=== PATIENT | female | born 1950 | race Caucasian/White ===

== ENCOUNTER → 2020-04-24 13:54 | Outpatient (CLI) | payer OTHER, SELFPAY ==
[2020-04-24 15:31] LABS: Add Manual Diff / Slide Review NO; Basophils Absolute Auto 0 /uL (0-100); Basophils Percent Auto 0.6 % (0-2); Eosinophils Absolute Auto 100 /uL (0-450); Eosinophils Percent Auto 0.9 % (2-4); Hematocrit 42.4 % (36-46); Hemoglobin 14.3 g/dL (12.0-16.0); Lymphocytes Absolute Auto 1900 /uL (1100-4500); Lymphocytes Percent Auto 28.1 % (25-40); Mean Corpuscular HGB Conc 33.8 % (30-36); Mean Corpuscular Hemoglobin 29.8 PG (26-34); Mean Corpuscular Volume 88.2 fL (80-100); Monocytes Absolute Auto 400 /uL (0-900); Monocytes Percent Auto 6.3 % (3-14); Neutrophils Absolute Auto 4300 /uL (1500-7000); Neutrophils Percent Auto 64.1 % (50-75); Platelet Count 271 X10^3/uL (150-400); Red Cell Distribution Width 14.6 % (11.6-14.8); White Blood Cell Count 6.8 X10^3/uL (4.5-11.0)
[2020-04-24 15:38] LABS: HEMOLYSIS < 15 (0-50); Iron 118 ug/dL (37-170)
[2020-04-24 15:41] LABS: Alanine Aminotransferase 22 IU/L (<35); Albumin 4.4 g/dL (3.5-5.0); Albumin Globulin Ratio 1.3 (1.0-2.8); Alkaline Phosphatase 117 U/L (38-126); Aspartate Aminotransferase 34 IU/L (14-36); BUN Creatinine Ratio 19.1 (6-22); Bilirubin Total 0.7 mg/dL (0.2-1.3); Blood Urea Nitrogen 17 mg/dL (7-17); Calcium 9.7 mg/dL (8.4-10.2); Carbon Dioxide 31 mmol/L (22-32); Chloride 104 mmol/L (98-107); Cholesterol 196 mg/dL (140-199); Estimated Glomerular Filt Rate > 60.0 mL/min (>60); Globulin 3.5 g/dL (1.7-4.1); Glucose 109 mg/dL (80-110); HEMOLYSIS < 15 (0-50); Magnesium 1.9 mg/dL (1.6-2.3); Potassium 4.7 mmol/L (3.4-5.1); Sodium 140 mmol/L (137-145); Total Protein 7.9 g/dL (6.3-8.2); Triglycerides 86 mg/dL (35-150)
[2020-04-24 15:45] LABS: Hemoglobin A1C% w Est Avg Glu 5.7 % (4.0-6.0)
[2020-04-24 15:50] LABS: Percent Iron Saturation 32 % (15-50); Total Iron Binding Capacity 364 ug/dL (265-497); Transferrin 278 mg/dL (206-381)
[2020-04-24 15:52] LABS: HDL Cholesterol 110 mg/dL (40-60); LDL Cholesterol Calculated 69 mg/dL (<100)
[2020-04-24 16:15] LABS: Ferritin 76 ng/mL (11-264)
[2020-04-24 16:23] LABS: Vitamin D 25 Hydroxy (D3) 31.3 ng/mL (30.0-100.0)
[2020-04-24 16:38] LABS: Vitamin B12 996 pg/mL (239-931)
[2020-04-24 16:46] LABS: Folate > 20.0 ng/mL (2.76-20.0)
[2020-04-24 16:55] LABS: INR 2.8 (0.9-1.3); Prothrombin Time 31.9 SECONDS (10.1-12.7)
== END ==
PROVIDERS: PCP Nurse Practitioner; Referring Provider Nurse Practitioner; Visit Provider Nurse Practitioner
DX: E03.9 Hypothyroidism, unspecified (principal); F32.9 Major depressive disorder, single episode, unspecified; F41.9 Anxiety disorder, unspecified; I48.20 Chronic atrial fibrillation, unspecified; Z79.01 Long term (current) use of anticoagulants; Z79.899 Other long term (current) drug therapy; Z98.84 Bariatric surgery status; I48.91 Unspecified atrial fibrillation; I25.10 Atherosclerotic heart disease of native coronary artery without angina pectoris
CPT/HCPCS: 36415; 80053; 80061; 82306; 82607; 82728; 82746; 83036; 83540; 83550; 83735; 84443; 85025; 85610

== ENCOUNTER → 2020-06-12 12:15 | Outpatient (CLI) | payer OTHER, SELFPAY ==
--- NOTE | 2020-06-12 | DI.MG.S_ITS ---
BILATERAL DIGITAL SCREENING MAMMOGRAM 3D/2D WITH CAD: 06/12/2020 CLINICAL: Routine screening. Personal history of right breast cancer. Family history of breast cancer. Comparison is made to exams dated: 03/02/2019 mammogram, 09/17/2014 mammogram, and 03/28/2019 mammogram - outside location. There are scattered fibroglandular elements in both breasts. Current study was also evaluated with a Computer Aided Detection (CAD) system. There are benign post operative findings in the right breast. No significant masses, calcifications, or other findings are seen in either breast. There has been no significant interval change. IMPRESSION: BENIGN There is no mammographic evidence of malignancy. A 1 year screening mammogram is recommended. This exam was interpreted at Station ID: [id number]. NOTE: For mammograms, a report in lay terms will be sent to the patient. Approximately 15% of breast malignancies will not be visualized mammographically. In the management of a palpable breast mass, a negative mammogram must not discourage biopsy of a clinically suspicious lesion. Electronically Signed By: Kyle henao/nasreen:06/12/2020 13:55:53 letter sent: Normal Exam ACR BI-RADS Category 2: Benign Finding(s) 3342F
== END ==
PROVIDERS: PCP Nurse Practitioner; Referring Provider Nurse Practitioner; Visit Provider Nurse Practitioner
DX: Z12.31 Encounter for screening mammogram for malignant neoplasm of breast (principal); Z85.3 Personal history of malignant neoplasm of breast; Z80.3 Family history of malignant neoplasm of breast
CPT/HCPCS: 77063; 77067

== ENCOUNTER → 2020-08-28 15:54 | Outpatient (CLI) | payer OTHER, SELFPAY ==
--- NOTE | 2020-08-28 15:55 | DI.ECHO.S_ITS ---
[facility] +---------+ : : [address] : : : : [id number] : : : : Phone: [phone] Echocardiogram Report + + :Name: YU SNOW V Study Date: 08/28/2020 Height: 68 in : :[facility] ReadingLocation: Weight: 265 lb : : Gender: Female BSA: 2.3 m2 : :: 1950 Age: 70 yrs BP: 155/100 mmHg: :Reason For Study: SHORTNESS OF BREATH, FATIGUE, AFIB : :Ordering Physician: ANITA, : :JARED Performed By: Natalia Underwood : :Referring: JARED HOWARD : + + Interpretation Summary The left ventricle is normal in size. The ejection fraction is estimated to be 60-65%. There are no obvious focal wall motion abnormalities noted but poor endocardial definition reduces the sensitivity for the detection of such. The left atrium is severely dilated. There is mild mitral regurgitation. There is mild aortic valve sclerosis. The right ventricular systolic pressure is estimated to be at least 35 mmHg based on an estimated right atrial pressure of 3 mm Hg. There is mild tricuspid regurgitation. The ascending aorta is mild-moderately enlarged. Procedure: A two-dimensional transthoracic echocardiogram with color flow and Doppler was performed. The study quality was technically difficult. There is no prior echocardiogram noted for this patient. The patient was in atrial fibrillation with heart rates between 71-114 bpm during the exam. Left Ventricle: The left ventricle is normal in size. Left ventricular wall thickness is at the upper limits of normal. The ejection fraction is estimated to be 60-65%. There are no obvious focal wall motion abnormalities noted but poor endocardial definition reduces the sensitivity for the detection of such. Diastolic function could not be accurately assessed due to atrial fibrillation. Right Ventricle: The right ventricle is normal in size and function. Atria: The left atrium is severely dilated. The right atrium is moderately dilated. There is no Doppler evidence for an interatrial shunt. Mitral Valve: The mitral valve is normal in structure and function. There is mild mitral regurgitation. Aortic Valve: The aortic valve is trileaflet. The aortic valve opens well. There is mild aortic valve sclerosis. There is no aortic valve stenosis. No aortic regurgitation is present. Tricuspid Valve: The tricuspid valve is normal in structure and function. There is mild tricuspid regurgitation. The right ventricular systolic pressure is estimated to be at least 35 mmHg based on an estimated right atrial pressure of 3 mm Hg. Pulmonic Valve: The pulmonic valve leaflets are thin and pliable; valve motion is normal. There is no pulmonic valvular regurgitation. Great Vessels: The aortic root is normal size. The ascending aorta is mild- moderately enlarged. The IVC is of normal diameter and collapses greater than 50% with a sniff. This suggests a low right atrial pressure of 3 mm Hg. Pericardium/ Pleura There is no pericardial effusion. There is no pleural effusion. MMode/2D Measurements & Calculations LVIDd: 4.4 cm LVOT diam: 1.9 cm LVIDs: 3.2 cm Ao root diam: 3.0 cm FS: 27.4 % asc Aorta Diam: 4.0 cm EPSS: 0.61 cm Ao Arch Diam (Prox Trans): 2.8 cm IVSd: 1.1 cm LVPWd: 1.0 cm LV garcia. diameter/BSA (cm/m^2): 1.9 LV sys. diameter/BSA (cm/m^2): 1.4 LA A2 area: 31.3 cm2 RA long axis: 7.4 cm LA A4 area: 32.3 cm2 RA area: 29.3 cm2 LA length (vol): 6.6 cm RA vol: 99.0 ml LA vol: 129.9 ml RA : 43.0 ml/m2 LA vol index: 56.4 ml/m2 IVC diam: 1.4 cm RVD1 (basal): 2.0 cm TAPSE: 1.9 cm Doppler Measurements & Calculations Ao V2 max: 106.3 cm/sec LVOT Max Papito: 69.1 cm/sec Ao V2 mean: 74.7 cm/sec LV V1 max P.9 mmHg Ao max P.5 mmHg LV V1 VTI: 13.6 cm Ao mean P.5 mmHg SHELLI(I,D): 1.9 cm2 Ao V2 VTI: 20.1 cm SHELLI(V,D): 1.8 cm2 sev ratio: 0.67 SHELLI indexed to BSA (cm^2/m^2): 0.83 MV E max papito: 102.1 cm/sec TR max papito: 283.5 cm/sec MV A max papito: 1.9 cm/sec TR max P.2 mmHg MV E/A: 54.5 PA V2 max: 65.9 cm/sec Med Peak E' Papito: 11.2 cm/sec PA V2 mean: 41.7 cm/sec E/E' med: 9.1 PA mean P.84 mmHg Lat Peak E' Papito: 13.1 cm/sec PA pr(Accel): 32.8 mmHg E/E' lat: 7.8 E/e' average: 8.5 MV dec time: 0.14 sec SV(LVOT): 38.4 ml Reading Physician:11:45 AM
== END ==
PROVIDERS: PCP Nurse Practitioner; Referring Provider Nurse Practitioner; Visit Provider Nurse Practitioner
DX: I08.3 Combined rheumatic disorders of mitral, aortic and tricuspid valves (principal); I77.89 Other specified disorders of arteries and arterioles; I48.20 Chronic atrial fibrillation, unspecified; R06.02 Shortness of breath; R53.83 Other fatigue
CPT/HCPCS: 93306

== ENCOUNTER → 2021-07-14 11:20 | Outpatient (CLI) | payer OTHER, SELFPAY ==
--- NOTE | 2021-07-14 | DI.MG.S_ITS ---
BILATERAL DIGITAL SCREENING MAMMOGRAM 3D/2D WITH CAD: 07/14/2021 CLINICAL: Routine screening. Personal history of right breast cancer. Routine screening. Comparison is made to exams dated: 06/12/2020 mammogram - [facility], 03/28/2019 ultrasound, 03/28/2019 mammogram, and 03/06/2019 mammogram - outside location. There are scattered fibroglandular elements in both breasts. Current study was also evaluated with a Computer Aided Detection (CAD) system. There are benign post operative findings in the right breast. No significant masses, calcifications, or other findings are seen in either breast. There has been no significant interval change. IMPRESSION: BENIGN There is no mammographic evidence of malignancy. A 1 year screening mammogram is recommended. This exam was interpreted at Station ID: [id number]. NOTE: For mammograms, a report in lay terms will be sent to the patient. Approximately 15% of breast malignancies will not be visualized mammographically. In the management of a palpable breast mass, a negative mammogram must not discourage biopsy of a clinically suspicious lesion. Electronically Signed By: Gene samaniego/nasreen:07/14/2021 16:23:15 letter sent: Normal Exam ACR BI-RADS Category 2: Benign Finding(s) 3342F
== END ==
PROVIDERS: PCP Nurse Practitioner; Referring Provider Nurse Practitioner; Visit Provider Nurse Practitioner
DX: Z12.31 Encounter for screening mammogram for malignant neoplasm of breast (principal); Z85.3 Personal history of malignant neoplasm of breast
CPT/HCPCS: 77063; 77067

== ENCOUNTER → 2021-12-23 12:57 | Outpatient (CLI) | payer OTHER, SELFPAY ==
--- NOTE | 2021-12-23 13:00 | DI.MRI.S_ITS ---
PROCEDURE: MR KNEE LT WO CON INDICATIONS: Left medial knee pain - worsening recently TECHNIQUE: Noncontrast sagittal PD fast spin echo and T2 fast spin echo with fat saturation, sagittal 3-D FLASH with fat saturation; coronal T1 spin echo and PD fast spin echo with fat saturation, and axial PD fast spin echo with fat saturation through the knee. COMPARISON: None. FINDINGS: Image quality: Excellent. Anterior Cruciate Ligament: Intact. Posterior Cruciate Ligament: Intact. Medial Collateral Ligament: Mild thickening of the proximal medial collateral ligament is most likely secondary to a remote prior low-grade sprain. Lateral Collateral Ligament: Intact. Medial Meniscus: There is complex tearing involving the body and posterior horn of the medial meniscus. A horizontal oblique component is seen at the posterior horn and body extending to the inner third of the tibial articular surface. There is also a deep radial component near the posterior root attachment. Mild extrusion of the meniscal body is seen beyond the femorotibial joint line. Lateral Meniscus: Mild intrasubstance degeneration is seen without a discrete tear. Medial and Lateral Tendons: The semimembranosus tendon insertions and meniscocapsular junction appear intact. Visualized portions of the pes anserinus tendons appear normal. No abnormal bursal fluid. The long and short heads of the biceps femoris tendon appear intact. The popliteus tendon appears intact. No signs of posterolateral corner injury. Iliotibial band appears normal. Anterior Structures: The quadriceps and patellar tendons appear intact. No patellar subluxation. 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 The tibial tubercle-trochlear groove distance is approximately 1.8 cm. No edema in the infrapatellar fat pad. Bones: No acute trabecular bone injury or fracture. Medial Femorotibial Cartilage: High-grade and likely full-thickness cartilage loss is seen at the central to posterior weight-bearing portion of the medial femoral condyle with mild subchondral edema and small marginal osteophytes. Findings are superimposed on generalized cartilage thinning in the weight-bearing portion of the medial compartment. Lateral Femorotibial Cartilage: No focal cartilage defect. Patellofemoral Cartilage: Focal full-thickness cartilage loss is seen at the median ridge of the patella with mild subchondral cystic changes. Mild to moderate partial-thickness cartilage loss are seen at the medial and lateral patellar facets. Soft Tissues: There is a small joint effusion. A small medial popliteal cyst is seen. There is also small amount of fluid tracking inferiorly along the popliteus tendon sheath. The musculature surrounding the knee is normal in bulk. IMPRESSION: 1. Complex tearing of the body portion horn of the medial meniscus with a horizontal oblique component extending to the inner third of the tibial articular surface at the posterior horn and body as well as a deep radial component at the posterior root attachment. Mild extrusion of the meniscal body is noted. 2. Mild intrasubstance degeneration in the lateral meniscus without a discrete tear. 3. Chronic low-grade sprain of the proximal medial collateral ligament. 4. 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 The tibial tubercle-trochlear groove distance is 1.8 cm. 5. Focal full-thickness cartilage loss in the anterior compartment at the median ridge of the patella. Grade 3-4 chondromalacia is seen in the weight-bearing portion of the medial femorotibial compartment. 6. Small joint effusion. Small medial popliteal cyst. Dictated by: Kyle Strickland M.D. on 12/23/2021 at 20:11 Approved by: Kyle Strickland M.D. on 12/23/2021 at 20:20
== END ==
PROVIDERS: PCP Nurse Practitioner; Referring Provider Nurse Practitioner; Visit Provider Nurse Practitioner
DX: M25.562 Pain in left knee (principal); S83.242A Other tear of medial meniscus, current injury, left knee, initial encounter; S83.412A Sprain of medial collateral ligament of left knee, initial encounter; S83.012A Lateral subluxation of left patella, initial encounter; M94.262 Chondromalacia, left knee; M25.462 Effusion, left knee; M71.22 Synovial cyst of popliteal space [Baker], left knee
CPT/HCPCS: 73721

== ENCOUNTER → 2022-01-21 12:32 | Outpatient (CLI) | payer OTHER, SELFPAY ==
--- NOTE | 2022-01-21 12:56 | DI.ECHO.S_ITS ---
:Referring: ANITA JARED : + + Interpretation Summary The left ventricle is normal in size. There is mild-moderate concentric left ventricular hypertrophy. The ejection fraction is estimated to be 55-60%. There are no focal wall motion abnormalities. Diastolic function could not be accurately assessed due to atrial fibrillation. Both atria are severely dilated. There is mild mitral regurgitation. There is mild tricuspid regurgitation. The right ventricular systolic pressure is estimated to be at least 36 mmHg based on an estimated right atrial pressure of 3 mm Hg. Similar to prior study on 08/28/2020 Procedure: A two-dimensional transthoracic echocardiogram with color flow and Doppler was performed. The study quality was technically adequate. Comparison is made with the echocardiogram of 08/28/2020. The patient was in atrial fibrillation with controlled ventricular rate during the exam. Hypertensive during exam. Left Ventricle: The left ventricle is normal in size. There is mild-moderate concentric left ventricular hypertrophy. Left ventricular systolic function is normal. The ejection fraction is estimated to be 55-60%. There are no focal wall motion abnormalities. Diastolic function could not be accurately assessed due to atrial fibrillation. Right Ventricle: The right ventricle is normal in size and function. Atria: Both atria are severely dilated. The interatrial septum grossly appears intact with no obvious evidence for an atrial septal defect. Mitral Valve: There is mild mitral annular calcification. There is mild mitral regurgitation. Aortic Valve: The aortic valve is normal in structure and function. No aortic regurgitation is present. Tricuspid Valve: The tricuspid valve is normal in structure and function. There is mild tricuspid regurgitation. The right ventricular systolic pressure is estimated to be at least 36 mmHg based on an estimated right atrial pressure of 3 mm Hg. Pulmonic Valve: The pulmonic valve is normal in structure and function. There is a trace or physiologic amount of pulmonic regurgitation. Great Vessels: The aortic root is normal size. The ascending aorta is mildly enlarged. The IVC is of normal diameter and collapses greater than 50% with a sniff. This suggests a low right atrial pressure of 3 mm Hg. Pericardium/ Pleura There is no pericardial effusion. There is no pleural effusion. MMode/2D Measurements & Calculations LVIDd: 4.0 cm LVOT diam: 2.1 cm LVIDs: 2.9 cm Ao root diam: 3.1 cm FS: 28.1 % asc Aorta Diam: 3.9 cm IVSd: 1.3 cm LVPWd: 1.3 cm LV garcia. diameter/BSA (cm/m^2): 1.8 LV sys. diameter/BSA (cm/m^2): 1.3 LA A2 area: 30.2 cm2 RA long axis: 7.4 cm LA A4 area: 32.9 cm2 RA area: 27.3 cm2 LA length (vol): 7.5 cm RA vol: 85.3 ml LA vol: 112.4 ml RA : 38.1 ml/m2 LA vol index: 50.3 ml/m2 TAPSE: 1.8 cm Doppler Measurements & Calculations Ao V2 max: 121.1 cm/sec LVOT Max Papito: 86.3 cm/sec Ao V2 mean: 83.5 cm/sec LV V1 max P.0 mmHg Ao max P.9 mmHg LV V1 VTI: 15.7 cm Ao mean P.1 mmHg SHELLI(I,D): 2.7 cm2 Ao V2 VTI: 20.5 cm SHELLI(V,D): 2.5 cm2 sev ratio: 0.77 SHELLI indexed to BSA (cm^2/m^2): 1.2 TR max papito: 284.9 cm/sec SV(LVOT): 54.9 ml TR max P.5 mmHg Reading Physician:PETE
== END ==
PROVIDERS: PCP Nurse Practitioner; Referring Provider Nurse Practitioner; Visit Provider Nurse Practitioner
DX: I10 Essential (primary) hypertension (principal); I08.1 Rheumatic disorders of both mitral and tricuspid valves
CPT/HCPCS: 93306

== ENCOUNTER → 2022-04-28 09:27 | Outpatient (CLI) | payer OTHER, SELFPAY ==
[2022-04-28 11:04] LABS: COVID19 -Nasal RAPID Negative (Negative)
--- NOTE | 2022-04-28 20:16 | DI.NM.S_ITS ---
DATE OF SERVICE: 04/28/2022 PROCEDURE: Intravenous Lexiscan perfusion study. INDICATION: Chest pain with underlying AFib, hypertension. RADIOPHARMACEUTICAL: 26.4 millicurie technetium-99m Myoview IV was injected at stress and 11.6 millicurie technetium-99m Myoview IV was injected at rest. CARDIAC STRESS: The patient underwent IV Lexiscan perfusion study under the supervision of an attending staff, as per standard intravenous Lexiscan protocol. Remained hemodynamically stable. Baseline rhythm was AFib with ventricular rate of about 106. During Lexiscan, maximum heart rate achieved 133 beats per minute. The patient has baseline nonspecific ST-T changes. There were no new ischemic changes. The patient remained in AFib. No other significant arrhythmias. No chest pain. The patient has minimal dyspnea. Baseline blood pressure 158/100 mmHg. RAW DATA: Significant breast shadow seen. There is increased subdiaphragmatic activity. The patient's weight is 250 pounds. GATED STUDY: Resting LV ejection fraction 57 and stress LV ejection fraction 65 percent without any obvious wall motion abnormalities. Resting end-diastolic volume 72 mL. TID ratio 0.87, which is within normal limits. Lung/heart ratio 0.44, which is within normal limits. MYOCARDIAL PERFUSION SCAN: Stress supine, resting supine and stress prone images were compared to each other. Stress supine images revealed small size, moderately decreased perfusion of distal anterolateral wall. Resting supine images revealed small size, moderately decreased perfusion of distal anterior wall, as well as mildly decreased perfusion of inferolateral wall. During stress prone images, all the defects got significantly improved, suggestive of breast tissue attenuation, as well as diaphragmatic tissue attenuation artifact. No convincing ischemia or infarction. CONCLUSION: I will call this study a normal myocardial perfusion study with evidence of breast tissue attenuation artifact, as well as diaphragmatic tissue attenuation artifact, which got significantly resolved during stress prone images. No convincing ischemia or infarction pattern. Underlying atrial fibrillation and ventricular rate of about 108 beats per minute at rest. Stress left ventricular ejection fraction 65 percent. No transient ischemic dilatation. Overall ,low-risk myocardial perfusion scan. Cheyenne Meléndez - Afua/isa doc#: [id number]/job#: [id number] dd: 04/28/2022 17:04:00 dt: 04/28/2022 19:18:00 DICTATING MD/COPIES TO: Mary Medina MD COPIES MNE: GONZALO;
== END ==
PROVIDERS: PCP Nurse Practitioner; Referring Provider Internal Medicine Cardiovascular Disease; Visit Provider Internal Medicine Cardiovascular Disease
DX: R07.9 Chest pain, unspecified (principal); I48.91 Unspecified atrial fibrillation; I10 Essential (primary) hypertension; R06.00 Dyspnea, unspecified; Z20.822 Contact with and (suspected) exposure to COVID-19
CPT/HCPCS: 78452; 87635; 93017; A9502; J2785

== ENCOUNTER → 2022-05-04 11:56 | Outpatient (CLI) | payer OTHER, SELFPAY | PROVIDERS: PCP Nurse Practitioner; Referring Provider Nurse Practitioner; Visit Provider Nurse Practitioner | DX: Z13.820 Encounter for screening for osteoporosis; Z78.0 Asymptomatic menopausal state; K92.9 Disease of digestive system, unspecified; I48.91 Unspecified atrial fibrillation; Z92.23 Personal history of estrogen therapy | CPT/HCPCS: 77080 ==

== ENCOUNTER → 2022-05-05 11:45 | Outpatient (CLI) | payer OTHER, SELFPAY ==
--- NOTE | 2022-05-05 11:46 | DI.MG.S_ITS ---
BILATERAL DIGITAL DIAGNOSTIC MAMMOGRAM 3D/2D POST LUMPECTOMY: 05/05/2022 CLINICAL: Mastodynia. Comparison is made to exams dated: 07/14/2021 mammogram, 06/12/2020 mammogram - [facility], and 03/28/2019 mammogram - outside location. There are scattered areas of fibroglandular density in both breasts (category b / 25%-50% glandular tissue). No significant masses, calcifications, or other findings are seen in either breast. IMPRESSION: INCOMPLETE: NEEDS ADDITIONAL IMAGING EVALUATION There is no mammographic abnormality seen in the right breast to correspond with the pain, however, targeted ultrasound of the right breast is recommended and will be performed immediately following this exam. This exam was interpreted at Station ID: [id number]. NOTE: For mammograms, a report in lay terms will be sent to the patient. Approximately 15% of breast malignancies will not be visualized mammographically. In the management of a palpable breast mass, a negative mammogram must not discourage biopsy of a clinically suspicious lesion. Electronically Signed By: Christi Wilson M.D. lk/:05/05/2022 12:16:23 ACR BI-RADS Category 0: Incomplete 3340F
--- NOTE | 2022-05-05 11:46 | DI.US.S_ITS ---
ULTRASOUND OF RIGHT BREAST: 05/05/2022 CLINICAL: Focal right breast pain. Comparison is made to exams dated: 05/05/2022 mammogram, 07/14/2021 mammogram, 06/12/2020 mammogram - [facility], 03/28/2019 ultrasound, 03/28/2019 mammogram, and 03/06/2019 mammogram - outside location. Color flow and real-time ultrasound of the right breast were performed on the areas of interest. Connolly scale images of the real-time examination were reviewed. IMPRESSION: NEGATIVE There is no sonographic evidence of malignancy. There is no mammographic or sonographic abnormality seen in the right breast to correspond with the intermittent pain, however, clinical followup is recommended. Return to annual mammogram screening schedule is recommended. This exam was interpreted at Station ID: [id number]. Electronically Signed By: Christi clement/:05/05/2022 13:19:49 letter sent: Clinical Evaluation Ultrasound BI-RADS: 1 Negative
== END ==
PROVIDERS: PCP Nurse Practitioner; Referring Provider Nurse Practitioner; Visit Provider Nurse Practitioner
DX: Z85.3 Personal history of malignant neoplasm of breast (principal); N64.4 Mastodynia; R92.2 Inconclusive mammogram
CPT/HCPCS: 76642; 77066; G0279

== ENCOUNTER → 2022-05-28 11:11 | Outpatient (CLI) | payer OTHER, SELFPAY ==
[2022-05-28 12:48] LABS: COVID19 -Nasal RAPID Negative (Negative)
== END ==
PROVIDERS: PCP Nurse Practitioner; Visit Provider Surgery
DX: Z01.812 Encounter for preprocedural laboratory examination (principal); Z20.822 Contact with and (suspected) exposure to COVID-19
CPT/HCPCS: 87635; C9803

== ENCOUNTER 2022-05-31 10:11 | Day surgery (SDC) | payer OTHER, SELFPAY ==
[2022-05-31 00:51] VITALS: BP 146/95; PULSE 92; RESP 18; O2SAT 99
[2022-05-31 10:49] VITALS: BP 127/89; PULSE 97; RESP 20; TEMP 36; O2SAT 98; BMI 37.2
--- NOTE | 2022-05-31 10:52 | P.HP_ITS ---
History of Present Illness History of Present Illness Date Patient Seen: 05/31/22 Time Patient Seen: 10:52 Chief complaint: [facility] Narrative: colon cancer screening, denies h/o colon polyps. No family history for colon cancer. Her last scope was 10 years ago. Patient History Medical History Allergies Anxiety Atrial fibrillation with RVR Breast cancer (~2018) Chicken pox Chronic anticoagulation Chronic atrial fibrillation (~2007) Depression Fall GERD (gastroesophageal reflux disease) (~2004) Gonorrhea Hearing loss (~2014) History of breast cancer in adulthood Hyperlipidemia Hypertension Hypothyroidism (~2004) IBS (irritable bowel syndrome) (~2004) Left medial knee pain Left ventricular hypertrophy by electrocardiogram Lichen sclerosus (~2009) Measles Mumps Ovarian cyst Post-menopausal osteoporosis Recurrent sinusitis Right knee pain Seasonal allergic rhinitis Surgical History Anesthesia History of gastric bypass (~2009) History of left oophorectomy (~1979) History of lumpectomy of right breast (~03/2019) Family & Social History Family History Father Cancer Alcohol abuse Mother Cancer Depression Insomnia Hypertension Anxiety Alcohol abuse Dementia Sister Depression Anxiety Grandmother Diabetes mellitus Social History: household members spouse lives independently No caregiver/support person No Tobacco & Substance use: Smoking Status Former smoker alcohol intake never Meds Home Medications and Allergies Home Medications Medication Instructions Recorded Confirmed Type CPAP Mask #1 ea 07/16/19 03/02/22 Rx CPAP Mask Cushions #6 ea 07/16/19 03/02/22 Rx anastrozole 1 mg tablet 1 mg PO DAILY 07/30/19 05/31/22 History cetirizine 10 mg capsule (All Day 10 mg PO BID 07/30/19 05/31/22 History Allergy (cetirizine)) betamethasone dipropionate 0.05 % See Rx Instructions .Route 05/21/21 05/31/22 Rx topical cream .COMPLEX #45 grams dicyclomine 10 mg capsule See Rx Instructions .Route 07/09/21 05/31/22 Rx .COMPLEX #180 caps omeprazole 20 mg capsule,delayed 20 mg PO DAILY acid reflux #90 caps 07/15/21 05/31/22 Rx release warfarin 5 mg tablet See Rx Instructions .Route .COMPLEX 01/21/22 05/31/22 History Lactobacillus acidophilus and 1 cap PO .QD #90 caps 02/01/22 03/02/22 Rx rhamnosus 15 billion cell capsule ([employer]) bupropion HCl 300 mg 24 hr tablet, See Rx Instructions .Route 02/01/22 05/31/22 Rx extended release .COMPLEX #90 tabs diph,pertuss(acel),tet vac(PF) 0.5 ml IM ONCE #0.5 mL 03/02/22 03/02/22 Rx 2Lf-(2.5-5-3-5mcg)-5 Lf/0.5 mL IM susp (Adacel (Tdap Adolesn/Adult)(PF)) lisinopril 5 mg tablet 20 mg PO DAILY 03/02/22 05/31/22 History varicella-zoster glycoE vacc-AS01B 0.5 ml IM ONCE #1 ea 03/02/22 03/02/22 Rx adj(PF) 50 mcg/0.5 mL IM susp, kit (Shingrix (PF)) levothyroxine 50 mcg tablet See Rx Instructions .Route 05/19/22 05/31/22 Rx .COMPLEX #90 tabs metoprolol tartrate 25 mg tablet See Rx Instructions .Route 05/19/22 05/31/22 Rx .COMPLEX #360 tabs Allergies Allergy/AdvReac Type Severity Reaction Status Date / Time Sulfa (Sulfonamide Allergy Rash Verified 05/31/22 10:22 Antibiotics) Review of Systems Review of Systems ROS: Yes All systems reviewed with the patient and are negative except as otherwise documented Exam Const General: anxious Nutritional Appearance: overweight Orientation: alert, awake and oriented x3 [facility] Head: normocephalic and atraumatic Ears: hearing grossly normal bilaterally Nose: external nose normal Throat: posterior oropharynx normal Eyes Sclera: sclerae normal Neck Neck: trachea midline Chest Chest: normal inspection of the chest Resp Effort & Inspection: normal respiratory effort and able to speak in complete sentences Cardio Rate: regular rate GI Inspection: normal to inspection Palpation: soft Skin General: atrophy Neuro General: patient alert, patient awake and patient oriented x3 Extrem General: normal to inspection Psych Appearance: grossly normal Judgment: judgment good Assessment & Plan Assessment & Plan narrative: Colon cancer screening, h/o breast cancer and right LE sarcoma. No family history for colon cancer Plan: colonoscopy with biopsy if indicated. COVID-19 COVID-19 status: Negative Time Spent With Patient Time with patient: less than 30 minutes Critical Care time: I spent a total of [] minutes of critical care time on this patient's care today; this time is exclusive of procedural time.
[2022-05-31] MEDS: LACTATED RINGERS 1,000 ML 100 ML IV (11:00)
--- NOTE | 2022-05-31 11:05 | PM.OP.COLON ---
Operative Date/Time/Diagnoses Date of procedure: 05/31/22 Time of procedure: 11:05 Pre-op diagnosis: Colon cancer screening Post-op diagnosis: same Procedure & Clinicians Study performed: colonoscopy with moderate sedation Same procedure as scheduled: Yes Indications: colon cancer screening Surgeon: Delia Baeza Procedure Notes Procedure in detail: Preop diagnosis: Colon cancer screening Postop diagnosis: Same Operative procedure: Colonoscopy with moderate sedation Surgeon: Antonia Baeza MD Anesthetic: Fentanyl 175 mcg, Versed 5 mg Findings: Large diverticuli in the sigmoid colon consistent with moderate to severe diverticulosis. No polyps Procedure: Patient placed in lateral position. Rectal exam performed showing normal tone no masses. Colonoscope inserted into the rectum and advanced to ileocecal valve with minimal difficulty. We did have pressure on the abdomen for short period of time Insufflation extraction scope including retroflex in the rectum had the above findings Impression: Severe diverted severe to moderate diverticulosis of the sigmoid colon. No polyps identified Plan: Repeat colonoscopy in 10 years unless otherwise indicated by change in clinical condition or family history Sedation minutes: 24 Findings: divertiulosis Specimen(s): none sent Complications: none Post-procedure Recommendations: Colonoscopy in 10 years Follow up: as needed Disposition: PACU
[2022-05-31] MEDS: fentaNYL 100 MCG/2 ML INJ 175 MCG IV (11:22)
[2022-05-31] MEDS: MIDAZOLAM 5 MG/5 ML VIAL IV (11:22)
[2022-05-31 11:36] VITALS: BP 147/85; PULSE 88; RESP 16; TEMP 36.1; O2SAT 97
[2022-05-31 11:46] VITALS: BP 145/95; PULSE 98; RESP 8; O2SAT 97
[2022-05-31 12:05] VITALS: BP 142/76; PULSE 98; RESP 16; TEMP 36.1; O2SAT 97
== END 2022-05-31 12:15 | disposition home or self-care (01) ==
PROVIDERS: PCP Nurse Practitioner; Referring Provider Surgery; Visit Provider Surgery
PROC: 0DJD8ZZ Inspection of Lower Intestinal Tract, Via Natural or Artificial Opening Endoscopic (ICD-10-PCS; CPT 45378; principal; 2022-05-31 11:30)
DX: Z12.11 Encounter for screening for malignant neoplasm of colon (principal); K57.30 Diverticulosis of large intestine without perforation or abscess without bleeding
CPT/HCPCS: G0121; 85610; J2250; J3010

== ENCOUNTER → 2022-10-27 13:09 | Outpatient (CLI) | payer OTHER, SELFPAY ==
[2022-10-27 13:49] LABS: INR 3.9 (0.9-1.3); Prothrombin Time 45.3 SECONDS (10.1-12.7)
== END ==
PROVIDERS: PCP Nurse Practitioner; Referring Provider Nurse Practitioner; Visit Provider Nurse Practitioner
DX: I82.409 Acute embolism and thrombosis of unspecified deep veins of unspecified lower extremity (principal)
CPT/HCPCS: 36415; 85610

== ENCOUNTER → 2023-08-23 11:06 | Outpatient (CLI) | payer OTHER, SELFPAY | LOC: RESP 11:06 | PROVIDERS: PCP Nurse Practitioner; Referring Provider Nurse Practitioner; Visit Provider Nurse Practitioner | DX: R06.02 Shortness of breath (principal); Z87.891 Personal history of nicotine dependence; J98.8 Other specified respiratory disorders | CPT/HCPCS: 94060; 94726; 94729 ==

== ENCOUNTER → 2023-09-06 14:44 | Outpatient (CLI) | payer OTHER, SELFPAY ==
--- NOTE | 2023-09-06 14:45 | DI.CT.S_ITS ---
PROCEDURE: CT HEAD/BRAIN WO CON INDICATIONS: confusion, imbalance, falls TECHNIQUE: Noncontrast 4.5 mm thick angled axial sections acquired from the foramen magnum to the vertex, with coronal and sagittal reformats. For radiation dose reduction, the following was used: automated exposure control, adjustment of mA and/or kV according to patient size. COMPARISON: None. FINDINGS: Image quality: Diagnostic. CSF spaces: Basal cisterns are patent. No extra-axial fluid collections. The ventricles are prominent suggesting central volume loss. Brain: A 1.7 x 1.6 by 1.5 cm mass is present within the inferior right frontal lobe (series 2/image 12 and series 4/image 12). No definite mass effect. There is likely some surrounding vasogenic edema. No other intracranial lesions. No acute intracranial hemorrhage. No midline shift. There are deep and periventricular white matter changes suggesting microvascular ischemia. A lacunar infarct or prominent perivascular space is present within the left basal ganglia. Skull and face: Calvarium and visualized facial bones appear intact, without suspicious lesions. Sinuses: Visualized sinuses and mastoids are clear. IMPRESSION: 1. Hyperdense mass within the right frontal lobe suspicious for neoplasm. If further characterization is warranted, MRI of the brain with and without contrast is recommended. There is only minimal vasogenic edema is so seated with this lesion on CT. No significant mass effect appreciated. This finding was discussed with nurse Nicolette Monge at 4:02 p.m. On September 06, 2023. 2. Prominence of the bilateral lateral ventricles. Differential considerations include central volume loss and hydrocephalus. 3. Findings likely associated with chronic microvascular ischemic changes. Dictated by: Christi Wilson M.D. on 09/06/2023 at 15:48 Approved by: Christi Wilson M.D. on 09/06/2023 at 16:02
== END ==
PROVIDERS: PCP Nurse Practitioner; Referring Provider Nurse Practitioner; Visit Provider Nurse Practitioner
DX: R41.0 Disorientation, unspecified (principal); G93.9 Disorder of brain, unspecified; R29.6 Repeated falls; R26.89 Other abnormalities of gait and mobility
CPT/HCPCS: 70450

== ENCOUNTER → 2023-09-07 14:33 | Outpatient (CLI) | payer OTHER, SELFPAY ==
[2023-09-07 15:41] LABS: BUN Creatinine Ratio 18.4 (6-22); Blood Urea Nitrogen 19 mg/dL (7-17); Calcium 9.4 mg/dL (8.4-10.2); Carbon Dioxide 28 mmol/L (22-32); Chloride 109 mmol/L (98-107); Estimated Glomerular Filt Rate 57 mL/min (>60); Glucose 93 mg/dL (80-110); HEMOLYSIS < 15 (0-50); Sodium 143 mmol/L (137-145)
== END ==
PROVIDERS: PCP Nurse Practitioner; Referring Provider Nurse Practitioner; Visit Provider Nurse Practitioner
DX: N28.9 Disorder of kidney and ureter, unspecified (principal)
CPT/HCPCS: 36415; 80048

== ENCOUNTER → 2023-09-09 08:00 | Outpatient (CLI) | payer OTHER, SELFPAY ==
--- NOTE | 2023-09-09 08:01 | DI.MRI.S_ITS ---
PROCEDURE: MR HEAD/BRAIN WO/W CON INDICATIONS: Mass in RT frontal lobe TECHNIQUE: Noncontrast axial T1 spin echo, axial T2 fast spin echo, sagittal and axial FLAIR, coronal T2 fast spin echo, axial gradient echo, axial diffusion and ADC through the brain. After the administration of contrast, axial and coronal and sagittal T1 spin echo with fat saturation through the brain. COMPARISON: [facility], CT, CT HEAD/BRAIN WO CON, 09/06/2023, 14:48. FINDINGS: Image quality: Excellent. CSF spaces: Basal cisterns are patent. No extra-axial fluid collections. Posterior fossa arachnoid cyst. Ventricles are enlarged, mildly out of proportion to the cerebral volume loss. Brain: Enhancing mass within the right anterior cranial fossa measuring 1.8 x 1.7 x 1.6 centimeters which appears extra-axial in etiology. There is minimal edema within the surrounding brain parenchyma. No midline shift. No intracranial bleeds. There is cerebral volume loss for age. There is periventricular white matter chronic small vessel ischemic change. The brainstem appears normal. Diffusion-weighted images demonstrate no acute infarct. 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 Normal intravascular flow voids are present. Skull and face: Calvarial marrow is normal in signal. Orbits appear normal. Sinuses: Sinuses and mastoids appear clear. IMPRESSION: Mass within the right anterior cranial fossa measuring up to 1.8 centimeters which appears extra-axial. There is minimal edema within the surrounding brain parenchyma. No dural tail is seen. This may still represent a meningioma. Metastatic disease is also in the differential but felt to be less likely. Recommend follow-up brain MRI in 3 months to assess stability. No other enhancing lesions are identified. No acute intracranial abnormalities. Ventriculomegaly which is mildly out of proportion to global volume loss, nonspecific and can be seen with normal pressure hydrocephalus. Recommend clinical correlation. Dictated by: Dayo Green M.D. on 09/09/2023 at 9:47 Approved by: Dayo Green M.D. on 09/09/2023 at 9:55
== END ==
PROVIDERS: PCP Nurse Practitioner; Referring Provider Nurse Practitioner; Visit Provider Nurse Practitioner
DX: G93.89 Other specified disorders of brain; R29.6 Repeated falls; N28.9 Disorder of kidney and ureter, unspecified
CPT/HCPCS: 70553; A9579

== ENCOUNTER → 2023-10-06 15:25 | Outpatient (CLI) | payer OTHER, SELFPAY ==
--- NOTE | 2023-10-06 16:20 | DI.ECHO.S_ITS ---
[place] [facility] : : [id number] : [address] : : [id number] : : Phone: [phone] Echocardiogram Report + + :Name: YU SNOW V Study Date: 10/06/2023 Height: 68 in : :[facility] ReadingLocation: Weight: 235 lb : : Gender: Female BSA: 2.2 m2 : :: 1950 Age: 73 yrs BP: 138/70 mmHg: :Reason For Study: SHORTNESS OF BREATH : :Ordering Physician: ARTEMIO, : :EDY Day Performed By: David Lipscomb : :Referring: EDY ULLOA : + + Interpretation Summary 1) Normal left ventricular size with mildly reduced systolic function (EF 45- 50%). 2) Grossly, normal right ventricular size with mildly reduced function. 3) No significant valvular abnormalities. 4) The right ventricular systolic pressure is estimated to be at least 51 mmHg based on an estimated right atrial pressure of 15 mm Hg. 5) Atrial fibrillation with RVR (89-138bppm) 6) Compared to the Echo done 01/21/2022, LV decreased from 55-60% to 45-50% on this study. Procedure: A two-dimensional transthoracic echocardiogram with color flow and Doppler was performed. The study quality was technically adequate. Comparison is made with the echocardiogram of 01/21/2022. The patient was in atrial fibrillation with heart rates between 89-138 bpm during the exam. Left Ventricle: The left ventricle is normal in size. There is mild concentric left ventricular hypertrophy. The ejection fraction is estimated to be 45-50%. There is mild global hypokinesis of the left ventricle. Right Ventricle: The right ventricle is not well visualized. The right ventricle is grossly normal size. Right ventricular systolic function is mildly reduced. Atria: The left atrium is severely dilated. Right atrium not well visualized secondary to technical limitations. The interatrial septum grossly appears intact with no obvious evidence for an atrial septal defect. Mitral Valve: The mitral valve is not well visualized. There is no mitral valve stenosis. There is mild mitral regurgitation. Aortic Valve: The aortic valve is trileaflet. There is no aortic valve stenosis. No aortic regurgitation is present. Tricuspid Valve: The tricuspid valve is not well visualized. There is no tricuspid stenosis. There is mild tricuspid regurgitation. The right ventricular systolic pressure is estimated to be at least 51 mmHg based on an estimated right atrial pressure of 15 mm Hg. Pulmonic Valve: The pulmonic valve is not well visualized. There is no pulmonic valvular stenosis. There is mild pulmonic regurgitation. Great Vessels: The aortic root is normal size. The ascending aorta is at the upper limits of normal in size. The IVC is dilated (diameter is greater than 2.1 cm) and it collapses less than 50% with a sniff. This suggests a high right atrial pressure of 15 mm Hg. Pericardium/ Pleura There is no pericardial effusion. There is no pleural effusion. MMode/2D Measurements & Calculations LVIDd: 4.3 cm LVOT diam: 1.9 cm LVIDs: 3.4 cm Ao root diam: 2.7 cm FS: 20.4 % asc Aorta Diam: 3.8 cm IVSd: 1.2 cm Ao Arch Diam (Prox Trans): 2.5 cm LVPWd: 1.3 cm LV garcia. diameter/BSA (cm/m^2): 2.0 LV sys. diameter/BSA (cm/m^2): 1.6 LA A2 area: 26.7 cm2 IVC diam: 2.1 cm LA A4 area: 33.1 cm2 LA length (vol): 7.2 cm LA vol: 104.7 ml LA vol index: 47.8 ml/m2 Doppler Measurements & Calculations Ao V2 max: 115.8 cm/sec LVOT Max Papito: 84.1 cm/sec Ao V2 mean: 81.5 cm/sec LV V1 max P.8 mmHg Ao max P.6 mmHg LV V1 VTI: 15.0 cm Ao mean P.0 mmHg SHELLI(I,D): 2.4 cm2 Ao V2 VTI: 17.7 cm SHELLI(V,D): 2.0 cm2 sev ratio: 0.85 SHELLI indexed to BSA (cm^2/m^2): 1.1 MV E max papito: 97.5 cm/sec TR max papito: 303.2 cm/sec MV dec time: 0.07 sec TR max P.8 mmHg PA V2 max: 96.6 cm/sec PA V2 mean: 67.0 cm/sec PA mean P.0 mmHg PA pr(Accel): 51.6 mmHg SV(LVOT): 41.8 ml Reading Physician:08:25 PM
== END ==
PROVIDERS: PCP Nurse Practitioner; Referring Provider Physician Assistant; Visit Provider Physician Assistant
DX: I48.20 Chronic atrial fibrillation, unspecified; R06.02 Shortness of breath; R60.0 Localized edema; I08.1 Rheumatic disorders of both mitral and tricuspid valves
CPT/HCPCS: 93005; 93306

== ENCOUNTER → 2023-12-14 13:14 | Outpatient (CLI) | payer OTHER, SELFPAY ==
[2023-12-14 14:30] LABS: Alanine Aminotransferase 15 IU/L (<35); Albumin 3.9 g/dL (3.5-5.0); Albumin Globulin Ratio 1.3 (1.0-2.8); Alkaline Phosphatase 82 U/L (38-126); Aspartate Aminotransferase 26 IU/L (14-36); BUN Creatinine Ratio 17.3 (6-22); Bilirubin Total 0.7 mg/dL (0.2-1.3); Blood Urea Nitrogen 19 mg/dL (7-17); Calcium 9.1 mg/dL (8.4-10.2); Carbon Dioxide 27 mmol/L (22-32); Chloride 109 mmol/L (98-107); Estimated Glomerular Filt Rate 52 mL/min (>60); Glucose 102 mg/dL (80-110); HEMOLYSIS < 15 (0-50); Potassium 4.2 mmol/L (3.4-5.1); Sodium 143 mmol/L (137-145); Total Protein 6.9 g/dL (6.3-8.2)
[2023-12-14 14:41] LABS: Add Manual Diff / Slide Review NO; Basophils Absolute Auto 0 /uL (0-100); Basophils Percent Auto 0.6 % (0-2); Eosinophils Absolute Auto 100 /uL (0-450); Eosinophils Percent Auto 0.8 % (2-4); Lymphocytes Absolute Auto 2000 /uL (1100-4500); Lymphocytes Percent Auto 29.7 % (25-40); Mean Corpuscular HGB Conc 33.3 % (30-36); Mean Corpuscular Hemoglobin 30.4 PG (26-34); Mean Corpuscular Volume 91.1 fL (80-100); Monocytes Absolute Auto 400 /uL (0-900); Monocytes Percent Auto 6.3 % (3-14); Neutrophils Absolute Auto 4200 /uL (1500-7000); Neutrophils Percent Auto 62.6 % (50-75); Platelet Count 242 X10^3/uL (150-400); Red Blood Cell Count 4.61 X10^6/uL (4.0-5.2); Red Cell Distribution Width 14.7 % (11.6-14.8); White Blood Cell Count 6.7 X10^3/uL (4.5-11.0)
[2023-12-14 14:51] LABS: INR 2.3 (0.9-1.3); Prothrombin Time 26.7 SECONDS (9.4-12.5)
[2023-12-14 15:15] LABS: Thyroid Stimulating Hormone 2.64 uIU/mL (0.47-4.68)
[2023-12-15 14:58] LABS: Hep C Virus Ab w/Reflex Quant NEGATIVE s/c (NEGATIVE)
== END ==
PROVIDERS: PCP Nurse Practitioner; Referring Provider Nurse Practitioner; Visit Provider Nurse Practitioner
DX: Z11.59 Encounter for screening for other viral diseases (principal); G93.89 Other specified disorders of brain; Z79.01 Long term (current) use of anticoagulants; I10 Essential (primary) hypertension; E78.5 Hyperlipidemia, unspecified; E03.9 Hypothyroidism, unspecified; F41.9 Anxiety disorder, unspecified; I48.20 Chronic atrial fibrillation, unspecified; Z79.899 Other long term (current) drug therapy
CPT/HCPCS: 36415; 80053; 84443; 85025; 85610; 86803

== ENCOUNTER → 2023-12-16 11:39 | Outpatient (CLI) | payer OTHER, SELFPAY ==
--- NOTE | 2023-12-16 11:42 | DI.MRI.S_ITS ---
PROCEDURE: MR HEAD/BRAIN WO/W CON INDICATIONS: 3 mo f/up frontal brain mass TECHNIQUE: Noncontrast axial T1 spin echo, axial T2 fast spin echo, sagittal and axial FLAIR, coronal T2 fast spin echo, axial gradient echo, axial diffusion and ADC through the brain. After the administration of contrast, axial and coronal and sagittal T1 spin echo with fat saturation through the brain. COMPARISON: [facility], CT, CT HEAD/BRAIN WO CON, 09/06/2023, 14:48. [facility], MR, MR HEAD/BRAIN WO/W CON, 09/09/2023, 8:56. FINDINGS: Image quality: Excellent. CSF spaces: Basal cisterns are patent. No extra-axial fluid collections. Ventricles are normal in size and shape. Brain: No midline shift. Previously identified inferior left frontal mass appearing extra-axial. It is hypointense on T2 and I so/hypointense on FLAIR. It demonstrates homogeneous enhancement. Minimalsogenic edema. No abnormal intracranial enhancement. There is cerebral volume loss for age. There is periventricular white matter chronic small vessel ischemic change. The brainstem appears normal. Diffusion-weighted images demonstrate no acute infarct. No chronic ischemic insults. Normal intravascular flow voids are present. Skull and face: Calvarial marrow is normal in signal. Orbits appear normal. Sinuses: Sinuses and mastoids appear clear. IMPRESSION: Stable appearance of enhancing inferior right frontal extra-axial mass most consistent with meningioma. Dictated by: Dulce Koenig M.D. on 12/16/2023 at 15:22 Approved by: Dulce Koenig M.D. on 12/16/2023 at 16:03
[2023-12-16 13:29] LABS: Cholesterol 149 mg/dL (140-199); HDL Cholesterol 81 mg/dL (40-60); LDL Cholesterol Calculated 55 mg/dL (<100); Triglycerides 64 mg/dL (35-150)
[2023-12-16 16:46] LABS: Creatinine Urine Random 99.82 mg/dL
[2023-12-16 16:59] LABS: Microalbumin Urine Random < 0.6 mg/dL (0-1.6)
== END ==
PROVIDERS: PCP Nurse Practitioner; Referring Provider Nurse Practitioner; Visit Provider Nurse Practitioner
DX: G93.89 Other specified disorders of brain (principal); I10 Essential (primary) hypertension; E78.5 Hyperlipidemia, unspecified; E03.9 Hypothyroidism, unspecified; F41.9 Anxiety disorder, unspecified; Z79.01 Long term (current) use of anticoagulants; Z79.899 Other long term (current) drug therapy
CPT/HCPCS: 36415; 70553; 80061; 82043; 82570; A9579

== ENCOUNTER → 2024-01-05 13:52 | Outpatient (CLI) | payer OTHER, SELFPAY ==
--- NOTE | 2024-01-05 13:54 | DI.MG.S_ITS ---
BILATERAL DIGITAL SCREENING MAMMOGRAM 3D/2D WITH CAD POST LUMPECTOMY: 01/05/2024 CLINICAL: Routine screening. Personal history of right breast cancer. Comparison is made to exams dated: 05/05/2022 mammogram, 07/14/2021 mammogram, and 06/12/2020 mammogram - [facility]. There are scattered areas of fibroglandular density in both breasts (category b / 25%-50% glandular tissue). Current study was also evaluated with a Computer Aided Detection (CAD) system. There are benign post operative findings in the right breast. No significant masses, calcifications, or other findings are seen in either breast. There has been no significant interval change. IMPRESSION: BENIGN There is no mammographic evidence of malignancy. A 1 year screening mammogram is recommended. This exam was interpreted at Station ID: [id number]. NOTE: For mammograms, a report in lay terms will be sent to the patient. Approximately 15% of breast malignancies will not be visualized mammographically. In the management of a palpable breast mass, a negative mammogram must not discourage biopsy of a clinically suspicious lesion. Electronically Signed By: Kylah Solomon M.D., Ph.D. christy/nasreen:01/06/2024 08:36:21 letter sent: Normal Exam ACR BI-RADS Category 2: Benign Finding(s) 3342F
== END ==
PROVIDERS: PCP Nurse Practitioner; Referring Provider Nurse Practitioner; Visit Provider Nurse Practitioner
DX: Z12.31 Encounter for screening mammogram for malignant neoplasm of breast (principal); Z85.3 Personal history of malignant neoplasm of breast; R92.323 Mammographic fibroglandular density, bilateral breasts
CPT/HCPCS: 77063; 77067

== ENCOUNTER → 2024-01-09 07:30 | Outpatient (CLI) | payer OTHER, SELFPAY ==
[2024-01-09 08:06] LABS: INR 2.4 (0.9-1.3); Prothrombin Time 27.4 SECONDS (9.4-12.5)
== END ==
PROVIDERS: PCP Nurse Practitioner; Referring Provider Nurse Practitioner; Visit Provider Nurse Practitioner
DX: Z79.01 Long term (current) use of anticoagulants (principal); I48.20 Chronic atrial fibrillation, unspecified
CPT/HCPCS: 36415; 85610

== ENCOUNTER → 2024-01-23 07:41 | Outpatient (CLI) | payer OTHER, SELFPAY ==
[2024-01-23 08:11] LABS: Prothrombin Time 23.1 SECONDS (9.4-12.5)
== END ==
PROVIDERS: PCP Nurse Practitioner; Referring Provider Nurse Practitioner; Visit Provider Nurse Practitioner
DX: Z01.812 Encounter for preprocedural laboratory examination (principal); Z79.01 Long term (current) use of anticoagulants; I48.20 Chronic atrial fibrillation, unspecified
CPT/HCPCS: 36415; 85610

== ENCOUNTER → 2024-02-27 14:30 | Outpatient (CLI) | payer OTHER, SELFPAY ==
[2024-02-27 15:13] LABS: INR 2.3 (0.9-1.3)
== END ==
PROVIDERS: PCP Nurse Practitioner; Referring Provider Student in an Organized Health Care Education/Training Program; Visit Provider Student in an Organized Health Care Education/Training Program
DX: I48.20 Chronic atrial fibrillation, unspecified (principal); Z79.01 Long term (current) use of anticoagulants
CPT/HCPCS: 36415; 85610

== ENCOUNTER → 2024-04-11 10:15 | Outpatient (CLI) | payer OTHER, SELFPAY ==
[2024-04-11 11:36] LABS: Prothrombin Time 22.4 SECONDS (9.4-12.5)
== END ==
PROVIDERS: PCP Student in an Organized Health Care Education/Training Program; Referring Provider Student in an Organized Health Care Education/Training Program; Visit Provider Student in an Organized Health Care Education/Training Program
DX: I48.20 Chronic atrial fibrillation, unspecified (principal); Z79.01 Long term (current) use of anticoagulants
CPT/HCPCS: 36415; 85610

== ENCOUNTER → 2024-08-10 10:19 | Outpatient (CLI) | payer OTHER, SELFPAY ==
[2024-08-10 11:00] LABS: Hematocrit 40.2 % (36-46); Hemoglobin 13.3 g/dL (12.0-16.0); Mean Corpuscular HGB Conc 32.9 % (30-36); Mean Corpuscular Hemoglobin 30.1 PG (26-34); Mean Corpuscular Volume 91.4 fL (80-100); Platelet Count 227 X10^3/uL (150-400); Red Cell Distribution Width 14.7 % (11.6-14.8); White Blood Cell Count 4.3 X10^3/uL (4.5-11.0)
[2024-08-10 11:24] LABS: BUN Creatinine Ratio 15.8 (6-22); Blood Urea Nitrogen 16 mg/dL (7-17); Calcium 8.9 mg/dL (8.4-10.2); Carbon Dioxide 26 mmol/L (22-32); Chloride 108 mmol/L (98-107); Cholesterol 176 mg/dL (140-199); Estimated Glomerular Filt Rate 58 mL/min (>60); Glucose 88 mg/dL (80-110); HDL Cholesterol 87 mg/dL (40-60); HEMOLYSIS < 15 (0-50); LDL Cholesterol Calculated 76 mg/dL (<100); Potassium 3.9 mmol/L (3.4-5.1); Sodium 141 mmol/L (137-145); Triglycerides 65 mg/dL (35-150)
[2024-08-10 11:27] LABS: INR 2.7 (0.9-1.3); Prothrombin Time 29.6 SECONDS (9.4-12.5)
== END ==
LOC: LAB 10:20
PROVIDERS: PCP Student in an Organized Health Care Education/Training Program; Referring Provider Internal Medicine Cardiovascular Disease; Visit Provider Internal Medicine Cardiovascular Disease
DX: Z79.01 Long term (current) use of anticoagulants (principal); I10 Essential (primary) hypertension; I48.20 Chronic atrial fibrillation, unspecified
CPT/HCPCS: 36415; 80048; 80061; 85027; 85610

== ENCOUNTER → 2024-10-17 10:54 | Outpatient (CLI) | payer OTHER, SELFPAY ==
[2024-10-17 11:35] LABS: INR 2.2 (0.9-1.3); Prothrombin Time 24.7 SECONDS (9.4-12.5)
== END ==
PROVIDERS: PCP Student in an Organized Health Care Education/Training Program; Referring Provider Student in an Organized Health Care Education/Training Program; Visit Provider Student in an Organized Health Care Education/Training Program
DX: Z79.01 Long term (current) use of anticoagulants (principal); I48.20 Chronic atrial fibrillation, unspecified
CPT/HCPCS: 36415; 85610

== ENCOUNTER → 2024-11-20 12:01 | Outpatient (CLI) | payer OTHER, SELFPAY ==
[2024-11-20 12:40] LABS: Add Manual Diff / Slide Review NO; Basophils Absolute Auto 0 /uL (0-100); Basophils Percent Auto 0.7 % (0-2); Eosinophils Absolute Auto 100 /uL (0-450); Eosinophils Percent Auto 1.1 % (2-4); Hemoglobin 13.6 g/dL (12.0-16.0); Lymphocytes Absolute Auto 1700 /uL (1100-4500); Lymphocytes Percent Auto 31.8 % (25-40); Mean Corpuscular Hemoglobin 30.5 PG (26-34); Mean Corpuscular Volume 89.7 fL (80-100); Monocytes Absolute Auto 400 /uL (0-900); Monocytes Percent Auto 7.3 % (3-14); Neutrophils Absolute Auto 3200 /uL (1500-7000); Neutrophils Percent Auto 59.1 % (50-75); Platelet Count 225 X10^3/uL (150-400); Red Blood Cell Count 4.46 X10^6/uL (4.0-5.2); Red Cell Distribution Width 14.2 % (11.6-14.8); White Blood Cell Count 5.4 X10^3/uL (4.5-11.0)
[2024-11-20 13:04] LABS: INR 1.7 (0.9-1.3); Prothrombin Time 19.1 SECONDS (9.4-12.5)
[2024-11-20 13:17] LABS: HEMOLYSIS < 15 (0-50); Iron 128 ug/dL (37-170)
[2024-11-20 13:18] LABS: Alanine Aminotransferase 20 IU/L (<35); Albumin 4.1 g/dL (3.5-5.0); Albumin Globulin Ratio 1.6 (1.0-2.8); Alkaline Phosphatase 74 U/L (38-126); Aspartate Aminotransferase 29 IU/L (14-36); BUN Creatinine Ratio 17.7 (6-22); Bilirubin Total 0.9 mg/dL (0.2-1.3); Blood Urea Nitrogen 17 mg/dL (7-17); Calcium 9.4 mg/dL (8.4-10.2); Carbon Dioxide 26 mmol/L (22-32); Chloride 108 mmol/L (98-107); Estimated Glomerular Filt Rate > 60 mL/min (>60); Globulin 2.6 g/dL (1.7-4.1); Glucose 83 mg/dL (70-99); HEMOLYSIS < 15 (0-50); Potassium 4.4 mmol/L (3.4-5.1); Sodium 141 mmol/L (137-145); Total Protein 6.7 g/dL (6.3-8.2)
[2024-11-20 13:29] LABS: Percent Iron Saturation 45 % (15-50); Total Iron Binding Capacity 283 ug/dL (265-497); Transferrin 230 mg/dL (206-381)
[2024-11-20 13:49] LABS: TSH w/ Reflex to FT4 1.44 uIU/mL (0.47-4.68)
[2024-11-20 13:53] LABS: Ferritin 100 ng/mL (11-264)
[2024-11-20 14:35] LABS: Vitamin D 25 Hydroxy (D3) 40.7 ng/mL (30.0-100.0)
[2024-11-21 03:36] LABS: EBV Nuclear Antigen Ab IgG >600.0 U/mL (0.0-17.9)
== END ==
PROVIDERS: PCP Student in an Organized Health Care Education/Training Program; Referring Provider Student in an Organized Health Care Education/Training Program; Visit Provider Student in an Organized Health Care Education/Training Program
DX: I20.89 Other forms of angina pectoris (principal); R53.83 Other fatigue
CPT/HCPCS: 36415; 80053; 82306; 82728; 83540; 83550; 84443; 85025; 85610; 86664

== ENCOUNTER → 2025-04-08 16:26 | Outpatient (CLI) | payer OTHER, SELFPAY ==
[2025-04-08 17:51] LABS: INR 3.5 (0.9-1.3); Prothrombin Time 38.2 SECONDS (9.4-12.5)
== END ==
PROVIDERS: PCP Student in an Organized Health Care Education/Training Program; Referring Provider Student in an Organized Health Care Education/Training Program; Visit Provider Student in an Organized Health Care Education/Training Program
DX: I48.20 Chronic atrial fibrillation, unspecified (principal); Z79.01 Long term (current) use of anticoagulants
CPT/HCPCS: 36415; 85610

== ENCOUNTER → 2025-05-07 11:36 | Outpatient (CLI) | payer OTHER, SELFPAY ==
[2025-05-07 12:31] LABS: INR 3.1 (0.9-1.3); Prothrombin Time 34.4 SECONDS (9.4-12.5)
== END ==
PROVIDERS: PCP Student in an Organized Health Care Education/Training Program; Referring Provider Student in an Organized Health Care Education/Training Program; Visit Provider Student in an Organized Health Care Education/Training Program
DX: I48.20 Chronic atrial fibrillation, unspecified (principal); Z79.01 Long term (current) use of anticoagulants
CPT/HCPCS: 36415; 85610